=== PATIENT | male | born 1955 | race Caucasian/White ===

== ENCOUNTER 2016-05-31 07:21 | Day surgery (SDC) | payer OTHER ==
[2016-05-31] MEDS ORDERED: SALINE FLUSH 10 ML DISP.SYRIN IVF ONE (08:00)
[2016-05-31] MEDS ORDERED: PROPOFOL 200 MG/20 ML VIAL IV ONE (08:00)
[2016-05-31] MEDS ORDERED: LIDOCAINE HCL/PF 2% 100 MG/5 ML VIAL IJ ONE (08:00)
[2016-05-31] MEDS ORDERED: LACTATED RINGERS 1,000 ML IV.SOLN IV ONE (08:00)
--- NOTE | 2016-05-31 11:08 | GI Report ---
REFERRING PHYSICIAN: Dr. John Saldana ASSORTMENT PLANNER: Charlie Bell MD PROCEDURE MEDICATION: Propofol as per anesthesia. INDICATIONS: Patient is a 61-year-old man who is referred for a screening. His last colonoscopy was maybe 15 years ago. He denies a family history. He denies any changes in his stools or bleeding. PROCEDURE PERFORMED: Colonoscopy and polypectomy. PROCEDURE: An Olympus video colonoscope was advanced to the rectum and slowly advanced all the way to the cecum. The appendiceal orifice and terminal ileum were normal. On slow withdrawal, the cecum, ascending colon, and transverse colon with no obvious intraluminal lesions noted. The descending colon and sigmoid with some redundancy but no obvious intraluminal lesions noted. In the distal sigmoid or at the rectosigmoid junction at about 12 or 13 cm, the patient had a 3 to 4 mm sessile polyp removed with electrocautery and submitted to pathology. Retroflexion of the rectum showed some hemorrhoids. The patient tolerated the procedure well. FINDINGS: A polyp removed at the rectosigmoid junction and submitted to pathology, otherwise, an unremarkable colonoscopy. RECOMMENDATIONS: 1. A high-fiber diet. 2. Pending the pathology of the polyp, consider re-looking at his colon in 5 years. cc: Dr. John DHALIWAL
== END 2016-05-31 07:22 ==
LOC: OPSURG 07:21
PROVIDERS: ATTEND Internal Medicine Gastroenterology
DX: Z12.11 Encounter for screening for malignant neoplasm of colon (principal); D12.7 Benign neoplasm of rectosigmoid junction; K64.8 Other hemorrhoids
CPT/HCPCS: 45385; J2001; J2704; J7120; S1016

== ENCOUNTER 2018-10-05 09:46 | Outpatient (CLI) | payer OTHER ==
[2018-10-17 17:43] LABS: HDL 43 mg/dL (>40); eGFR (Non-African) > 60
== END 2018-10-05 09:51 | disposition home or self-care (01) ==
LOC: LAB 09:46
PROVIDERS: ATTEND Family Medicine
DX: R97.20 Elevated prostate specific antigen [PSA] (principal)
CPT/HCPCS: 36415; 80053; 80061; 84153